=== PATIENT | male | born 1950 | race Two or more races ===

== ENCOUNTER 2020-01-09 14:39 | Inpatient (IN) | payer MEDICAID ==
[~2020-01-09] VITALS: Ht 165.1 cm; Wt 34.5 kg
--- NOTE | 2020-01-09 14:42 | NUR ---
DR QUIÑONEZ AT BEDSIDE
--- NOTE | 2020-01-09 14:43 | NUR ---
bibsarah, from [facility], had syncopal episode and pulled out his GT this morning BS 140, to ER bed 8, hooked to awake overnight monitor, BP cuff and POX, changed to hosp gown, warm blanket provided, patient AAO x 2, breathing even and unlabored, NAD noted. awaiting MD bryant.
[2020-01-09] MEDS ORDERED: IV NS 0.9% 500 ML BAG IV ONE (15:00)
--- NOTE | 2020-01-09 15:00 | NUR ---
SISTER, [facility] WOULD LIKE TO BE UPDATED. [phone]
[2020-01-09] MEDS ORDERED: MAGN400O6 GT (15:03)
[2020-01-09] MEDS ORDERED: CRAN425C6 GT (15:03)
[2020-01-09] MEDS ORDERED: ZINC454O5 TP (15:03)
[2020-01-09] MEDS ORDERED: ACET-868 GT (15:03)
[2020-01-09] MEDS ORDERED: IPRA3AMP23 IH (15:03)
[2020-01-09] MEDS ORDERED: CRAN3875 GT (15:03)
[2020-01-09] MEDS ORDERED: TRAM50TA2 GT (15:03)
[2020-01-09] MEDS ORDERED: ACET-2605 GT (15:03)
[2020-01-09] MEDS ORDERED: LACT-209 GT (15:03)
[2020-01-09 15:35] LABS: BASOPHILS % (AUTO) 0.3 % (0.0-2.0); EOSINOPHILS % (AUTO) 0.2 % (0.0-6.0); HEMATOCRIT 37 % (39-51); HEMOGLOBIN 11.5 g/dL (13.5-17.5); LYMPHOCYTES # (AUTO) 0.7 /CMM (0.8-4.8); LYMPHOCYTES % (AUTO) 5.3 % (20.0-44.0); MEAN CORPUSCULAR HGB CONC 31 g/dl (31.0-36.0); MEAN CORPUSCULAR VOLUME 97 fL (80-96); MONOCYTES # (AUTO) 0.5 /CMM (0.1-1.30); NEUTROPHILS # (AUTO) 11.8 /CMM (1.8-8.9); NEUTROPHILS % (AUTO) 90.2 % (43.0-81.0); PLATELET COUNT (AUTO) 361 /CMM (150-450); RED BLOOD CELL COUNT(AUTO) 3.83 MIL/uL (4.5-6.0)
[2020-01-09 16:22] LABS: CARBON DIOXIDE 26 mmol/L (21-32); CHLORIDE 104 mmol/L (98-107); CREATININE 2.1 mg/dL (0.6-1.3); GLUCOSE 140 mg/dL (74-106); POTASSIUM 4.9 mmol/L (3.5-5.1); SODIUM SERUM 144 mmol/L (136-145); UREA NITROGEN, BLOOD 56 mg/dL (7-18)
[2020-01-09 16:28] LABS: ALANINE AMINOTRANSFERASE 41 U/L (12-78); ALKALINE PHOSPHATASE 216 U/L (46-116); ASPARTATE AMINOTRANSFERASE 51 U/L (15-37); BILIRUBIN,DIRECT 0.3 mg/dL (0.0-0.2); BILIRUBIN,TOTAL 0.7 mg/dL (0.2-1.0); TOTAL PROTEIN, SERUM 6.9 g/dL (6.4-8.2)
--- NOTE | 2020-01-09 17:08 | NUR ---
CALLED [facility]. SHERIFFS WAS PAGED
[2020-01-09] MEDS ORDERED: MAG HYDROX/AL HYDROX/SIMETH 30 ML UDC PO PRN (17:30)
[2020-01-09] MEDS ORDERED: MISCELLANEOUS MED 1 EA EA GT PRN (17:30)
[2020-01-09] MEDS ORDERED: Z GUARD REMEDY 2 OZ OINT TP PRN (17:30)
[2020-01-09] MEDS ORDERED: JEVITY 1.2 CAL 1,000 ML BOTTLE GT PRN (17:30)
[2020-01-09] MEDS ORDERED: MAGNESIUM HYDROXIDE 30 ML UDC GT PRN (17:30)
[2020-01-09] MEDS ORDERED: ACETAMINOPHEN 325 MG TABLET MC PRN (17:30)
[2020-01-09] MEDS ORDERED: HYDROCODONE/APAP 5/325MG TABLET PO PRN (17:30)
[2020-01-09] MEDS ORDERED: ACETAMINOPHEN 325 MG TABLET PO PRN (17:30)
[2020-01-09] MEDS ORDERED: IV NS 0.9% 1,000 ML IV PRN (17:30)
[2020-01-09] MEDS ORDERED: ONDANSETRON HCL/PF 4 MG/2 ML VIAL IVP PRN (17:30)
[2020-01-09] MEDS ORDERED: Medication Not On Formulary EA (Ipratropium/Albuterol Sulfate (Duoneb 2.5-0.5 Mg/3 Ml So IH PRN (17:30)
[2020-01-09] MEDS ORDERED: ENOXAPARIN SODIUM 40 MG/0.4 ML DISP.SYRIN SQ SCH (17:30)
[2020-01-09] MEDS ORDERED: MAGNESIUM HYDROXIDE 30 ML UDC PO PRN (17:30)
--- NOTE | 2020-01-09 17:39 | NUR ---
COVID PCR SWAB DONE AND SENT TO LAB
--- NOTE | 2020-01-09 17:58 | NUR ---
REPORT GIVEN TO LILY HUGO OF [facility]
--- NOTE | 2020-01-09 18:24 | NUR ---
US TECH AT BEDSIDE
--- NOTE | 2020-01-09 18:32 | NUR ---
covid 19 negative
[2020-01-09] MEDS ORDERED: ASPIRIN 81 MG TAB.CHEW GT ONE (18:56)
--- NOTE | 2020-01-09 19:30 | NUR ---
REPORT RECIEVED FROM NA HUGO. PT NEW ADMISSION THAT [facility] FOR DX OF SYNCOPE AND HE PULLED OUT GTUBE. PT IS IN BED ON 2LNC. TELE TO BE APPLIED. VS TO BE TAKEN PT ARRIVED ON UNIT AT 1905 PER REPORT. TO COMPLETE ADMISSION ASSESSEMENT PER RECORDS. PT CONFUSED. GTUBE PRESENT IT WAS REINSTERTED ORDERS TO KEEP NPO. ADMISSION ORDERS IN COMPUTER FROM [facility]. WILL CONT TO MONITOR.
[2020-01-09 20:00] VITALS: BP 89/55
[2020-01-09] MEDS ORDERED: ENOXAPARIN SODIUM 30 MG/0.3 ML DISP.SYRIN SQ SCH (20:00)
[2020-01-09] MEDS ORDERED: VANCOMYCIN 500 MG in IV D5W 100 ML IV SCH (20:00)
--- NOTE | 2020-01-09 20:28 | NUR ---
BILATERAL SOFT WRIST RESTRAINTS APPLIED. pt keeps pulling off oxygen to nose, removing tele monitoring, attempting to climb out of bed pt is confused and does not follow directions. informed practitioner amos . new orders for bilateral wrist restraints recieved. and applied. will intitate restratin monitoring protocol.
[2020-01-09] MEDS: TRAMADOL HCL 50 MG TABLET GT SCH (22:42)
[2020-01-09] MEDS: PIPERACILLIN /TAZOBACTAM 2.25 G in IV D5W 50 ML IV SCH (22:43)
[2020-01-09] MEDS ORDERED: ASPIRIN 81 MG TAB.CHEW GT SCH (23:00)
[2020-01-10] VITALS (40 sets, daily range): BP systolic 52–153; BP diastolic 12–109
--- NOTE | 2020-01-10 05:15 | NUR ---
TUBE FEEDING STOPPED. gtube site found to be leaking brown odorous liquid. tube feeding stopped will endorse to oncoming shift to speak with md during rounds.
[2020-01-10] MEDS: PIPERACILLIN /TAZOBACTAM 2.25 G in IV D5W 50 ML IV SCH ×3 (05:36→21:38)
[2020-01-10] MEDS ORDERED: ALBUTEROL FS 2.5 MG/3 ML VIAL.NEB NEB PRN (06:30)
[2020-01-10] MEDS ORDERED: IPRATROPIUM NEB FS 0.5 MG/2.5 ML AMPUL.NEB NEB PRN (06:30)
[2020-01-10] MEDS: CARVEDILOL 3.125 MG TABLET GT SCH ×2 (08:00→16:09)
--- NOTE | 2020-01-10 08:00 | NUR ---
RN NOTES PATIENTS G-TUBE LEAKING AM MEDICATIONS HELD. MD MADE AWARE.
[2020-01-10 08:02] LABS: BASOPHILS % (AUTO) 0.3 % (0.0-2.0); EOSINOPHILS % (AUTO) 0.2 % (0.0-6.0); HEMATOCRIT 29 % (39-51); HEMOGLOBIN 8.6 g/dL (13.5-17.5); LYMPHOCYTES # (AUTO) 0.4 /CMM (0.8-4.8); LYMPHOCYTES % (AUTO) 5.4 % (20.0-44.0); MEAN CORPUSCULAR HGB CONC 30 g/dl (31.0-36.0); MEAN CORPUSCULAR VOLUME 103 fL (80-96); MONOCYTES # (AUTO) 0.3 /CMM (0.1-1.30); MONOCYTES % (AUTO) 3.5 % (2.0-12.0); NEUTROPHILS # (AUTO) 7.4 /CMM (1.8-8.9); NEUTROPHILS % (AUTO) 90.6 % (43.0-81.0); PLATELET COUNT (AUTO) 275 /CMM (150-450); RED BLOOD CELL COUNT(AUTO) 2.77 MIL/uL (4.5-6.0); WHITE BLOOD COUNT (AUTO) 8.2 K/uL (4.3-11.0)
[2020-01-10 08:22] LABS: CALCIUM, SERUM 11.1 mg/dL (8.5-10.1); CARBON DIOXIDE 18 mmol/L (21-32); CHLORIDE 106 mmol/L (98-107); CREATININE 2.5 mg/dL (0.6-1.3); GLUCOSE 120 mg/dL (74-106); SODIUM SERUM 145 mmol/L (136-145); UREA NITROGEN, BLOOD 74 mg/dL (7-18)
[2020-01-10 08:27] LABS: ALANINE AMINOTRANSFERASE 65 U/L (12-78); ALBUMIN 1.7 g/dL (3.4-5.0); ALKALINE PHOSPHATASE 184 U/L (46-116); ASPARTATE AMINOTRANSFERASE 125 U/L (15-37); BILIRUBIN,TOTAL 0.8 mg/dL (0.2-1.0); MAGNESIUM 3.4 mg/dL (1.8-2.4); PHOSPHORUS 7.1 mg/dL (2.5-4.9); TOTAL PROTEIN, SERUM 5.9 g/dL (6.4-8.2)
[2020-01-10 08:33] LABS: CHOLESTEROL 87 mg/dL (<200); HDL CHOLESTEROL 23 mg/dL (40-60); LDL 59 mg/dL (0-99); TRIGLYCERIDES 64 mg/dL (30-150)
[2020-01-10] MEDS ORDERED: Medication Not On Formulary EA (Cranberry Extract (Cranberry) 425 MG) GT SCH (09:00)
[2020-01-10] MEDS ORDERED: Medication Not On Formulary EA (Cran/Vitc/Mannose/Inulin/Brom (Uti-Stat Liquid) 3,875 MG GT SCH (09:00)
[2020-01-10] MEDS: TRAMADOL HCL 50 MG TABLET GT SCH ×2 (09:00→21:00)
[2020-01-10] MEDS: ZINC OXIDE 56.7 GM TUBE TP SCH (09:00)
--- NOTE | 2020-01-10 09:00 | NUR ---
RN NOTES UNABLE TO OBTAIN BLOOD PRESSURE. MULTIPLE ATTEMPTS MADE. USING MANUAL BLOOD PRESSURE MACHINE. MULTIPLE NURSES TRIED. PAGED MD WAITING FOR CALL BACK. PATIENTS RESPIRATIONS RATE IS 24, O2 SATURATION 95% ON 4 LITTERS OF O2. PULSE IS 56. PATIENT AWAKE. APPEARS IN DISTRESS.
--- NOTE | 2020-01-10 09:15 | NUR ---
ARCHITECTURAL WOOD MODEL MAKER NOTES ICU NURSE JANICE ASKED TO EVALUATE PATIENT. ALSO UNABLE TO OBTAIN BP USING DOPPLER.
--- NOTE | 2020-01-10 09:30 | NUR ---
DOCUMENT SPECIALIST NOTES PATIENT SEEN BY DR. ALANIZ ORDERS GIVEN TO TRANSFER TO ICU. ORDERS NOTED. BED REQUESTED FROM DRIVER COURIER.
--- NOTE | 2020-01-10 09:45 | NUR ---
RN NOTES CALLED PATIENTS SISTER CONFIRMED CODE STATUS. PATIENTS SISTER REQUESTS FULL CODE.
[2020-01-10] MEDS ORDERED: IV NS 0.9% 1,000 ML IV ONE (10:00)
--- NOTE | 2020-01-10 10:00 | NUR ---
ULTRASOUND TECHNOL NOTES PATIENT TRANSFERRED TO ICU. REPORT GIVEN TO [facility] ICU NURSE AT BEDSIDE.
--- NOTE | 2020-01-10 10:10 | NUR ---
ICU/RN: RECEIVED PT FROM [facility]. ORDERS RECEIVED FROM FOR TRANSFER. UNABLE TO OBTAIN A BP. PT ALERT, DOES NOT FOLLOW COMMANDS. PT PLACED ON TELE, SINUS GISELLE. ON NASAL CANULA, 6LITERS, SATURATING WELL. NO ACUTE DISTRESS NOTED. SKIN INTACT. TUBE FEEDING HELD, BLACK LEAKAGE NOTED FROM AROUND THE GTUBE. AND DR. BROWN NOTIFIED. PIV PATENT AND INTACT. WILL CONTINUE TO MONITOR. ORDERS RECEIVED FOR FLUID BOLUS, ABG AND VASOPRESSORS NEEDED.
[2020-01-10] MEDS ORDERED: IV NS 0.9% 500 ML IV ONE (10:30)
[2020-01-10] MEDS ORDERED: IV NS 0.9% 1,000 ML IV PRN (11:19)
[2020-01-10 11:33] LABS: ABG BASE EXCESS -15.1 mmol/L; ABG OXYGEN SATURATION 98.6 % (92.0-98.5); ABG PCO2 42.4 mmHg (35.0-45.0); ABG PH 7.111 (7.350-7.450); ABG PO2 187.2 mmHg (75.0-100.0); AaDO2 49.2 mmHg; COHb 0.7 % (0.5-1.5); MetHb 0.1 % (0.0-1.5); O2Hb 97.8 % (94.0-97.0); SITE, ABG Right Femoral; VENT MODE, BG nasal cannula
--- NOTE | 2020-01-10 12:00 | NUR ---
ICU/RN: PER ORDERS FROM PT PLACED ON BIPAP. TRANSFERRED TO NEGATIVE PRESSURE ROOM. RAPID COVID NEGATIVE, PCR PENDING, LOW CLINICAL INDICATION. 15/, RR 16, 28%. WILL CONTINUE TO MONITOR.
--- NOTE | 2020-01-10 12:00 | NUR ---
pt. placed into bipap with settings below per dr. vasquez: ipap 15 epap 5 rr 16 fio2 28% Addendum: 01/10/20 at 1206 by KEYLA VARELA RT Amended: Links added.
--- NOTE | 2020-01-10 12:10 | NUR ---
ICU/RN: BLOOD GLUCOSE CRITICALLY LOW, WILL REDRAW. IN MEANTIME ACCU CHECK DONE. BS 16. CALLED MD, ORDERS FOR D50 RECEIVED. WILL REASSESS.
[2020-01-10] MEDS: NOREPINEPHRINE 8 MG in IV NS 0.9% 242 ML IV PRN ×2 (12:20→17:33)
--- NOTE | 2020-01-10 12:20 | NUR ---
ICU/RN: LEVO STARTED FOR BP SUPPORT. ORDERS FOR PICC LINE RECEIVED. WILL FOLLOW THROUGH.
[2020-01-10] MEDS: HYDROCORTISONE SOD SUCCINATE 100 MG/2 ML VIAL IV SCH ×2 (12:22→21:38)
[2020-01-10] MEDS: LEVOTHYROXINE INJ 100 MCG VIAL IV SCH (12:41)
[2020-01-10] MEDS ORDERED: DEXTROSE 50%-WATER 50 ML DISP.SYRIN IVP ONE ×2 (13:00→15:30)
[2020-01-10 13:45] LABS: CARBON DIOXIDE 16 mmol/L (21-32); CHLORIDE 107 mmol/L (98-107); GLUCOSE 39 mg/dL (74-106); POTASSIUM 6.2 mmol/L (3.5-5.1); SODIUM SERUM 146 mmol/L (136-145)
[2020-01-10 13:46] LABS: CALCIUM, SERUM 10.5 mg/dL (8.5-10.1); CREATININE 2.7 mg/dL (0.6-1.3); UREA NITROGEN, BLOOD 77 mg/dL (7-18)
[2020-01-10 14:19] LABS: ABG BASE EXCESS -17.5 mmol/L; ABG OXYGEN SATURATION 94.4 % (92.0-98.5); ABG PH 7.205 (7.350-7.450); ABG PO2 102.6 mmHg (75.0-100.0); AaDO2 69.9 mmHg; COHb 0.9 % (0.5-1.5); MetHb 0.3 % (0.0-1.5); O2Hb 93.3 % (94.0-97.0); SITE, ABG Right Femoral; VENT MODE, BG 15 IPAP / 5 EPAP
[2020-01-10] MEDS ORDERED: SODIUM BICARBONATE SYR 50 MEQ/50 ML DISP.SYRIN IV ONE (14:30)
[2020-01-10] MEDS ORDERED: SODIUM BICARBONATE SYR 150 MEQ in IV D5W 1,000 ML IV ONE (14:30)
[2020-01-10] MEDS: BLOOD SUGAR DIAGNOSTIC 1 EACH STRIP IN SCH ×5 (15:18→21:38)
[2020-01-10] MEDS: Sodium Bicarbonate 150 MEQ in IV D5/ 0.9% NACL 1,000 ML IV PRN ×2 (15:19→22:11)
--- NOTE | 2020-01-10 15:20 | NUR ---
ICU/RN: GLUCOSE 58, D50 GIVEN, WILL REASSESS QHOURLY. PER MD MUST DO QHOURLY TILL 2 BLOOD GLUCOSE >100, THEN SWITCH TO Q4H.
[2020-01-10] MEDS: PHENYLEPHRINE 50 MG in IV NS 0.9% 245 ML IV PRN (17:34)
--- NOTE | 2020-01-10 17:34 | NUR ---
ICU/RN: PT MAX OUT OF LEVO. DIFFICULT TO OBTAIN BP ON PT. STARTED ON PIERCE. WILL CONTINUE TO MONITOR.
[2020-01-10 17:43] LABS: ABG BASE EXCESS -10.6 mmol/L; ABG OXYGEN SATURATION 86.3 % (92.0-98.5); ABG PCO2 43.2 mmHg (35.0-45.0); ABG PH 7.203 (7.350-7.450); ABG PO2 68.7 mmHg (75.0-100.0); COHb 0.8 % (0.5-1.5); MetHb 0.3 % (0.0-1.5); O2Hb 85.4 % (94.0-97.0); SITE, ABG Right Femoral; VENT MODE, BG 15 IPAP / 5 EPAP
--- NOTE | 2020-01-10 17:53 | NUR ---
BIPAP SETTINGS BELOW CHANGED PER DR. ALANIZ: 25 IPAP 5 EPAP RN NOTIFIED ON CHANGES Addendum: 01/10/20 at 1754 by KEYLA VARELA RT Amended: Links added.
--- NOTE | 2020-01-10 19:00 | NUR ---
received patient in critical state multiple pressors such as levo and katerin infusing, as well as, d5w with 3 amps sodium bicarb. patient is on bipap with setting at 25/5 rate of 20. patient has Gtube that is clamped with black coffee ground leaking from Gtube site. Temp noted to be at 81.8 will initiate rewarming with kiera pedro. unable to get blood pressure via automatic machine. will attempt manual bp to get blood pressure. bed in low lock position with rials up x 2. call light within reach and all safety measures ensured and carried out. will continue to monitor.
--- NOTE | 2020-01-10 19:46 | NUR ---
ICU/RN: ENDING NOTES,AM REPORT ENDORSED TO NIGHT NURSE FOR CHASE. PT ON BIPAP WITH SETTINGS ORDERED. SINUS ON TELE. RIGHT UPPER ARM PICC LINE PATENT AND INTACT, LEVO AND PIERCE INFUSING FOR BP SUPPORT. BICARB DRIP INFUSING AT 150ML/HR. GLUCOSE MORE STABLE, WILL CONTINUE TO MONITOR [id number]. BILATERAL SOFT WRIST RESTRAINTS IN PLACE FOR SAFETY, ASSESSED PER PROTOCOL. ALL NEEDS ATTENDED TO, SAFETY MEASURES TAKEN, BED IN LOW POSITION, SIDE RAILS UP, CALL LIGHT WITHIN REACH. WILL CONTINUE CARE.
[2020-01-10 20:14] LABS: ABG BASE EXCESS -14.5 mmol/L; ABG OXYGEN SATURATION 88.3 % (92.0-98.5); ABG PCO2 33.1 mmHg (35.0-45.0); ABG PH 7.193 (7.350-7.450); ABG PO2 75.1 mmHg (75.0-100.0); AaDO2 85.5 mmHg; COHb 1.1 % (0.5-1.5); MetHb 0.1 % (0.0-1.5); O2Hb 87.2 % (94.0-97.0); SITE, ABG Right Radial
--- NOTE | 2020-01-10 20:14 | NUR ---
PT ON BIPAP. STAT ABG DONE. NOTIFIED RN WITH THE RESULT.
--- NOTE | 2020-01-10 20:34 | NUR ---
RATE CHANGED TO [address] TOBIAS.
[2020-01-10] MEDS ORDERED: SODIUM BICARBONATE SYR 50 MEQ/50 ML DISP.SYRIN ONE (21:05)
[2020-01-10] MEDS ORDERED: SODIUM BICARBONATE SYR 50 MEQ/50 ML DISP.SYRIN IV STA (21:11)
--- NOTE | 2020-01-10 22:00 | NUR ---
notified Dr. Hernandez of the difficulty in gaining a blood pressure despite trying manually. Per Dr. Hernandez he will place an A-line for more accurate hemodynamic monitoring. A-line placed and patient tolerated well.
[2020-01-10 22:40] LABS: CALCIUM, SERUM 9.1 mg/dL (8.5-10.1); CARBON DIOXIDE 19 mmol/L (21-32); CHLORIDE 107 mmol/L (98-107); CREATININE 2.7 mg/dL (0.6-1.3); GLUCOSE 162 mg/dL (74-106); POTASSIUM 5.3 mmol/L (3.5-5.1); SODIUM SERUM 155 mmol/L (136-145); UREA NITROGEN, BLOOD 79 mg/dL (7-18)
[2020-01-10 23:01] LABS: OCCULT BLOOD STOOL POSITIVE (NEGATIVE)
[2020-01-11] VITALS (30 sets, daily range): BP systolic 61–119; BP diastolic 19–47
[2020-01-11] MEDS ORDERED: VASOPRESSIN INJ 20 UNIT/ML VIAL ONE (00:55)
[2020-01-11] MEDS: BLOOD SUGAR DIAGNOSTIC 1 EACH STRIP IN SCH ×2 (01:07→04:26)
[2020-01-11] MEDS: VASOPRESSIN INJ 40 UNIT in IV NS 0.9% 38 ML IV PRN ×2 (01:12→08:08)
[2020-01-11] MEDS: NOREPINEPHRINE 8 MG in IV NS 0.9% 242 ML IV PRN ×2 (01:14→05:21)
[2020-01-11] MEDS: PHENYLEPHRINE 50 MG in IV NS 0.9% 245 ML IV PRN (01:31)
[2020-01-11 01:52] LABS: BASOPHILS % (AUTO) 0.2 % (0.0-2.0)
[2020-01-11 02:22] LABS: EOSINOPHILS % (AUTO) 0.7 % (0.0-6.0); HEMATOCRIT 23 % (39-51); LYMPHOCYTES # (AUTO) 0.3 /CMM (0.8-4.8); LYMPHOCYTES % (AUTO) 7.4 % (20.0-44.0); MEAN CORPUSCULAR HGB CONC 29 g/dl (31.0-36.0); MEAN CORPUSCULAR VOLUME 110 fL (80-96); MONOCYTES # (AUTO) 0.3 /CMM (0.1-1.30); MONOCYTES % (AUTO) 7.6 % (2.0-12.0); NEUTROPHILS # (AUTO) 2.9 /CMM (1.8-8.9); NEUTROPHILS % (AUTO) 84.1 % (43.0-81.0); PLATELET COUNT (AUTO) 104 /CMM (150-450); RED BLOOD CELL COUNT(AUTO) 2.09 MIL/uL (4.5-6.0); WHITE BLOOD COUNT (AUTO) 3.4 K/uL (4.3-11.0)
[2020-01-11 02:54] LABS: HEMOGLOBIN 6.6 g/dL (13.5-17.5)
--- NOTE | 2020-01-11 03:42 | NUR ---
gave Dr. trinidad critical lab values of hgb 6.6 and received orders to give one unit prbc. read back orders and carried out.
[2020-01-11 04:03] LABS: BAND % (MANUAL) 7 % (0.0-5.0); LYMPHOCYTES % (MANUAL) 9 % (16-48); MONOCYTES % (MANUAL) 8 % (0-11.0); NEUTROPHILS % (MANUAL) 76 (42-76)
[2020-01-11 04:44] LABS: CARBON DIOXIDE 14 mmol/L (21-32); CHLORIDE 110 mmol/L (98-107); CREATININE 2.8 mg/dL (0.6-1.3); GLUCOSE 67 mg/dL (74-106); UREA NITROGEN, BLOOD 77 mg/dL (7-18)
[2020-01-11] MEDS ORDERED: DEXTROSE 50%-WATER 50 ML DISP.SYRIN ONE (04:55)
[2020-01-11] MEDS ORDERED: DEXTROSE 50%-WATER 50 ML DISP.SYRIN IVP ONE (05:00)
[2020-01-11 05:02] LABS: SODIUM SERUM 158 mmol/L (136-145)
--- NOTE | 2020-01-11 05:30 | NUR ---
notified dr. trinidad of ab with no new orders at this time. abg is in patient chart.
[2020-01-11 05:38] LABS: ABG BASE EXCESS -22.3 mmol/L; ABG OXYGEN SATURATION 96.6 % (92.0-98.5); ABG PCO2 23.1 mmHg (35.0-45.0); ABG PH 7.043 (7.350-7.450); AaDO2 134.6 mmHg; COHb 1.6 % (0.5-1.5); MetHb 0.5 % (0.0-1.5); O2Hb 94.6 % (94.0-97.0); SITE, ABG A-Line
--- NOTE | 2020-01-11 05:39 | NUR ---
STAT ABG DONE. NOTIFIED AXEL HUGO WITH THE RESULT.
[2020-01-11] MEDS: PIPERACILLIN /TAZOBACTAM 2.25 G in IV D5W 50 ML IV SCH (05:56)
[2020-01-11] MEDS: HYDROCORTISONE SOD SUCCINATE 100 MG/2 ML VIAL IV SCH (05:56)
[2020-01-11] MEDS ORDERED: SODIUM BICARBONATE SYR 50 MEQ/50 ML DISP.SYRIN IV ONE (06:30)
[2020-01-11] MEDS: Sodium Bicarbonate 150 MEQ in IV D5/ 0.9% NACL 1,000 ML IV PRN (06:43)
--- NOTE | 2020-01-11 07:15 | NUR ---
DATABASES SOFTWARE CONSULTANT Received patient on BiPAP, per Dr. Arzola patient needs to be intubated patient is critical - maxed out on three pressors: levo, katerin, vasopressin. Bicarb infusing as ordered. Art line & CVP in place. REBECA PICC intact Pupils unreactive and unequal. Not responsive to tactile or verbal stimuli. Tele monitor shows junctional rhythm with HR 48. SPO2 WNL, difficult for saturation read, patient w/ poor perfusion. s/p 1U RBC
[2020-01-11] MEDS: LEVOTHYROXINE INJ 100 MCG VIAL IV SCH (07:30)
--- NOTE | 2020-01-11 08:05 | NUR ---
patient remains in critical condition. all needs met, all orders carried out. will endorse care to am rn for continuity of care.
[2020-01-11] MEDS: TRAMADOL HCL 50 MG TABLET GT SCH (08:15)
[2020-01-11] MEDS: ZINC OXIDE 56.7 GM TUBE TP SCH (08:15)
--- NOTE | 2020-01-11 08:51 | NUR ---
call placed to patient's sister Marcelle -update: intubation
--- NOTE | 2020-01-11 08:59 | NUR ---
anesthesiologist at bedside for intubation
[2020-01-11] MEDS ORDERED: NOREPINEPHRINE 32 MG in IV NS 0.9% 218 ML IV PRN (09:00)
--- NOTE | 2020-01-11 09:07 | NUR ---
RT PATIENT WAS ORALLY INTUBATED BY DR KINSEY WITH A 7.5 ETT SECURED AT 23CM MID LIP. DURING INTUBATION PATIENT CODED. FAMILY WAS ON THE PHONE AND CHANGED CODED STATUS TO NO CODE, NO CPR. PATIENT WAS CHECKED FOR FEMORAL PULSES AND NON WERE FELT. DR KINSEY PRONOUNCED THE PATIENT TIME OF .
--- NOTE | 2020-01-11 09:08 | NUR ---
patient's sister Marcelle [phone] called back stating they do not want patient to be resuscitated. verbalized this wish to both me and Dr. Day anesthesiologist. coded during intubation. no palpable pulses Addendum: 01/11/20 at 1013 by ELPIDIO WANG RN clarification - no palpable carotid or radial pulses felt by OANH and Dr. Day. pronounced at 0912 Addendum: 01/11/20 at 1024 by ELPIDIO WANG RN CORRECTION PRONOUNCED AT 0924
--- NOTE | 2020-01-11 09:45 | NUR ---
called [facility] spoke to estella [phone], attending SHEET ROCK TAPER HELPER Jhonatan and nursing sup [place] made aware of
[2020-01-11] MEDS ORDERED: ETOMIDATE 2 MG/ML VIAL IV ONE (12:05)
[2020-01-11] MEDS ORDERED: ROCURONIUM BROMIDE 50 MG/5 ML IV ONE (12:05)
[2020-01-11] MEDS ORDERED: LIDOCAINE HCL 20 MG/ML ML MM ONE (12:05)
== END 2020-01-11 12:06 | disposition expired | DRG 720 ==
LOC: ER 14:41 → TELE2 17:47 → ICU 01-10 09:51
PROVIDERS: ADMIT Internal Medicine; ATTEND Nurse Practitioner Acute Care
PROC: 5A09457 Assistance with Respiratory Ventilation, 24-96 Consecutive Hours, Continuous Positive Airway Pressure (ICD-10-PCS; principal; 2020-01-09)
PROC: 04HL33Z Insertion of Infusion Device into Left Femoral Artery, Percutaneous Approach (ICD-10-PCS; 2020-01-10)
PROC: 30233N1 Transfusion of Nonautologous Red Blood Cells into Peripheral Vein, Percutaneous Approach (ICD-10-PCS; 2020-01-11)
PROC: 0BH18EZ Insertion of Endotracheal Airway into Trachea, Via Natural or Artificial Opening Endoscopic (ICD-10-PCS; 2020-01-11)
PROC: 02HV33Z Insertion of Infusion Device into Superior Vena Cava, Percutaneous Approach (ICD-10-PCS; 2020-01-11)
PROC: B548ZZA Ultrasonography of Superior Vena Cava, Guidance (ICD-10-PCS; 2020-01-11)
DX: A41.9 Sepsis, unspecified organism (principal); J15.6 Pneumonia due to other Gram-negative bacteria; I21.4 Non-ST elevation (NSTEMI) myocardial infarction; G93.41 Metabolic encephalopathy; N17.0 Acute kidney failure with tubular necrosis; J44.0 Chronic obstructive pulmonary disease with (acute) lower respiratory infection; R13.10 Dysphagia, unspecified; N18.9 Chronic kidney disease, unspecified; E43 Unspecified severe protein-calorie malnutrition; J96.01 Acute respiratory failure with hypoxia; J96.02 Acute respiratory failure with hypercapnia; R65.21 Severe sepsis with septic shock; Z93.1 Gastrostomy status; E87.5 Hyperkalemia; R57.1 Hypovolemic shock; E16.2 Hypoglycemia, unspecified; Z66 Do not resuscitate; D62 Acute posthemorrhagic anemia; E83.52 Hypercalcemia; Z68.1 Body mass index [BMI] 19.9 or less, adult; R74.01 Elevation of levels of liver transaminase levels; I21.A1 Myocardial infarction type 2; E87.2 Acidosis; E27.40 Unspecified adrenocortical insufficiency; E86.1 Hypovolemia
CPT/HCPCS: 36415; 36600; 70450-TC; 71045-TC; 80048-TC; 80053-TC; 80061-TC; 80076-TC; 82272-TC; 82533; 82803-TC; 82962-TC; 83605-TC; 83735-TC; 83970; 84100-TC; 84443-TC; 84484-TC; 85025-TC; 86803; 86850-TC; 87040-TC; 87081-TC; 87806; 93880-TC; 94760-TC; 94799-TC; A6403; C1751; G0378; J1650; J1720; J2370; J2543; J3370; J3490; J7030; J7040; J7042; J7050; J7060; J7070; P9016-BL; U0003